=== PATIENT | female | born 1975 | race Caucasian/White ===

== ENCOUNTER → 2016-08-14 | Outpatient (CLI) | payer MEDICARE, OTHER | LOC: RAD 15:28 | DX: Z01.818 Encounter for other preprocedural examination (principal); D50.9 Iron deficiency anemia, unspecified; E55.9 Vitamin D deficiency, unspecified; R13.10 Dysphagia, unspecified; M54.9 Dorsalgia, unspecified; R94.31 Abnormal electrocardiogram [ECG] [EKG] | CPT/HCPCS: 71020; 93005 ==

== ENCOUNTER → 2020-05-10 | Outpatient (CLI) | payer MEDICARE, OTHER ==
[~2020-05-10] MED LIST: CYCLOBENZAPRINE10 MG PO; MEDROL DOSEPAK 24 MG PO; NAPROSYN500 MG PO
[2020-05-10 12:50] LABS: HEMOGLOBIN 11.9 gm/dl (12.3-15.3); RED BLOOD COUNT 3.56 M/UL (4.00-5.10); WHITE BLOOD COUNT 6.8 K/UL (4.5-11.0)
[2020-05-10 13:22] LABS: BUN/CREATININE RATIO 10 (0-10)
[2020-05-11 14:11] LABS: RHEUMATOID ARTHRITIS FACTOR <10.0 IU/mL (0.0-13.9)
[2020-05-11 23:11] LABS: CCP ANTIBODIES IGG/IGA 5 units (0-19)
== END ==
LOC: LAB 11:57
PROVIDERS: Internal Medicine
DX: D89.89 Other specified disorders involving the immune mechanism, not elsewhere classified (principal); M25.50 Pain in unspecified joint; L50.9 Urticaria, unspecified; R53.83 Other fatigue; M79.10 Myalgia, unspecified site; Z79.1 Long term (current) use of non-steroidal anti-inflammatories (NSAID)
CPT/HCPCS: 36415; 80053; 82550; 83520; 84439; 84443; 85025; 85652; 86140; 86200; 86431

== ENCOUNTER 2020-05-15 21:58 | Emergency (ER) | payer MEDICARE, OTHER ==
[~2020-05-15 21:58] MED LIST changes: -CYCLOBENZAPRINE10 MG PO; -MEDROL DOSEPAK 24 MG PO
[2020-05-16] MEDS ORDERED: CYCLOBENZAPRINE10 MG PO (00:20)
[2020-05-16] MEDS ORDERED: MEDROL DOSEPAK 24 MG PO (00:20)
== END 2020-05-16 01:20 | disposition home or self-care (01) ==
LOC: ER1 21:58
DX: M25.552 Pain in left hip (principal); G89.29 Other chronic pain; M54.2 Cervicalgia; Z79.891 Long term (current) use of opiate analgesic; Z88.8 Allergy status to other drugs, medicaments and biological substances; Z88.5 Allergy status to narcotic agent; Z88.6 Allergy status to analgesic agent
CPT/HCPCS: 96372; 99283; J2360; J2930